=== PATIENT | female | born 1970 | race Caucasian/White ===

== ENCOUNTER 2016-10-10 07:48 | Day surgery (SDC) | payer OTHER ==
[~2016-10-10] VITALS: Ht 167.6 cm; Wt 56.3 kg
[2016-10-10] VITALS (11 sets, daily range): BP systolic 107–156; BP diastolic 60–94; PULSE 52–81; RESP 10–16; O2SAT 94–100
[~2016-10-10 07:48] MED LIST: AMLO5TAB2 PO; BENA20TA PO; GABA-502 PO; IBUP-1827 PO; OMEP40CA36 PO; OXYC1TAB24 PO; ZOLP10TA5 PO
[2016-10-10] MEDS ORDERED: Ondansetron 2 mg/mL 2 mL Inj ONE (07:49)
[2016-10-10] MEDS ORDERED: fentaNYL-PF 50 mCg/mL 2 mL Inj ONE (07:49)
[2016-10-10] MEDS ORDERED: Propofol 10,000 mCg/mL 20 mL Inj ONE (07:49)
[2016-10-10] MEDS ORDERED: Dexamethasone 4 mg/mL Inj ONE (07:49)
--- NOTE | 2016-10-10 07:55 | PCM.HPANE ---
Patient Data Date of Service: Oct 10, 2016 Surgeon Admitting Provider: Attending Provider:Luis Alberto De La Fuente DO Primary Care Physician:Keara Davis Other Provider: Reason for Visit Left Cubital Tunnel Syndrome Ht/WT & BMI Height (Feet): 5 Height (Inches): 6 Weight (Kilograms): 55.70 Body Mass Index 19.00 Allergies Coded Allergies: metronidazole (Verified Allergy, Unknown, 10/09/16) Past Anesthesia History Anesthesia History: Denies:: Anesthesia Reactions, Fam Anesthesia Reaction, Fam Malignant Hypertherm, Malignant Hyperthermia Diabetes History Hx Diabetes?: No MRSA MRSA: No Medications Hypertension Medication: Yes Home Meds Incl Beta Patricia: No Reported Medications Zolpidem 10 Mg [id number] Mg PO HS PRN For Insomnia Ref 0 10/09/16 oxyCODONE-Acetaminophen 5-325 mg 1 Each Tablet1 Tab PO Q12H PRN For Pain Ref 0 10/09/16 Omeprazole 40 Mg Capsule.dr40 Mg PO DAILY Ref 0 10/09/16 Ibuprofen 600 Mg [id number] Mg PO QID PRN For Pain Ref 0 10/09/16 Gabapentin 300 Mg [id number] Mg PO HS Ref 0 10/09/16 Benazepril 20 Mg [id number] Mg PO DAILY 10/09/16 Amlodipine 5 Mg Tablet5 Mg PO DAILY Ref 0 10/09/16 Discontinued Reported Medications Hydrochlorothiazide-Expunged, Do Not Renew! 12.5 Mg Tablet 01/21/08 Amlodipine/Benazepril-Expunged, Do Not Renew! (Lotrel 01/04-Expunged Drug, Do Not Renew!)1 Cap Capsule 01/21/08 History HEENT History: Positive for:: Sinus Problem (hx of nasal fx surgery) Denies:: Cataracts Glaucoma Hearing Problem Cardiovascular History: Positive for:: Hypertension Irregular Heartbeat (occ palpitations ) Valvular Heart Disease (mild aortic regurg- recent ZIO patch done) Denies:: Abdominal Aortic Aneurism Atrial Fibrillation Cardiac Surgery Chest Pain Congestive Heart Failure Coronary Artery Disease Edema Hx of Respiratory Problem?: No Respiratory History: Denies:: Asthma COPD Emphysema Oxygen Administration Pneumonia Tuberculosis Use of C-PAP Machine (sleep study 10 years ago- negative ) Use of Inhalers / NEBS Hx Neurologic Problems?: No Neurological History: Denies:: CVA Headaches Multiple Sclerosis Parkinson's Disease Seizures Hx of GI Problems?: Yes Gastrointestinal History: Positive for:: Gastroesphageal Reflux Heartburn Denies:: Cirrhosis Gall Bladder Disease Gastrointestinal Bleeding Hepatitis Hiatal Hernia Liver Disease Rectal Bleeding Hx of Problems?: No Genitourinary History: Denies:: Kidney Stones Urinary Tract Infection Female Hx: Denies:: Currently (tubal ligation) Problems with Breasts? Skin History: Denies:: History Skin Disorders? Pressure Ulcers Hx Musculoskeletal Problems?: Yes Musculoskeletal History: Positive for:: Musculoskeletal Trauma (left elbow current admission problem) Osteoarthritis (questionable) Denies:: Back Injury Fibromyalgia Joint Replacement Hx of Psycho/Social Problems?: No Psycho Social History: Denies:: Anxiety (questions whether palpitation are anxiety related) Hx Depression Hx Surgeries?: Yes (c sections x2, tubal ligation, closed redux nasal fx) Hx Any Other Health Problems?: Yes Other History: Denies:: Cancer Thyroid Disease History Blood Transfusions: Positive for:: Accept Blood Products? Denies:: Blood Transfusions Hx Diabetes: No Hx Alcohol Use: YesAlcoholic Drinks Per Day: every other weekend or soHx Substance Use: No Smoking Status: Current Every Day Smoker Have You Smoked inLast 12 mo: Yes Stop/Bang Treated for Sleep Apnea?: No Do You Have a CPAP Machine?: No S-Snoring: Do You Snore Loudly: No T-Tired: feel tired, fatigued: Yes O-Obsered: Observed not breath: No P-Blood Pressure: treated: Yes B- Body Mass Index > 35 kg/m2: No A- Age over 50: No N- Neck Large Circumference: No G- Gender Male: No SRINI Total Score: 2 SRINI Risk Assessment: Low Risk, <3 Yes Risk Assessment Category Category 1A: Patient has history of documented sleep apnea, and HAS NOT received any narcotic, sedative or anesthesia administration during this stay. Category 1B: Patient has history of documented sleep apnea, and HAS received any narcotic , sedative or anesthesia administration during this stay Category 2: Patient has SUSPECTED Obstructive Sleep Apnea, and HAS received any narcotic , sedative or anesthesia administration during this stay. Category 3: Patient has SUSPECTED Obstructive Sleep Apnea and HAS NOT received narcotic, sedative or anesthesia administration during this stay. Category 4: Outpatient in Procedural Areas with known sleep apnea or who screen positive for High Risk via the STOP/BANG questionnaire. Exam Exam General Appearance: Alert, Oriented X3, Cooperative HEENT/AIRWAY: MP 2 Lungs: Clear to Auscultation, Normal Air Movement Heart: Normal S1, Normal S2, Murmur (II/ LISHA RUSB without radiation) Plan Impression Patient chart reviewed, patient interviewed and anesthestic plan with risks, benefits, and alternatives discussed, and informed consent obtained. ASA Physical Status: ASA2 Mod Systemic Disease Anesthetic Plan: GA Bene/Risks/Altern/Consents: Yes HP Complete Prior to Induction: Yes Merrill De Anda DO Oct 10, 2016 07:55
[2016-10-10] MEDS ORDERED: Lactated Ringer's 500 ML IV PRN (08:39)
[2016-10-10] MEDS ORDERED: Lactated Ringer's 1,000 ML IV SCH (08:39)
[2016-10-10] MEDS ORDERED: Dexamethasone 4 mg/mL Inj IVPUSH PRN (08:40)
[2016-10-10] MEDS ORDERED: EPHEDrine Sulfate 50 mg/mL Inj IVPUSH PRN (08:40)
[2016-10-10] MEDS ORDERED: Labetalol 5 mg/mL 4 mL Inj IV PRN (08:40)
[2016-10-10] MEDS ORDERED: MetoCLOpramide 5 mg/mL 2 mL Inj IVPUSH PRN (08:40)
[2016-10-10] MEDS ORDERED: Atropine 0.4 mg/mL Inj IVPUSH PRN (08:40)
[2016-10-10] MEDS ORDERED: Phenylephrine 10,000 mCg/mL Inj IVPUSH PRN (08:40)
[2016-10-10] MEDS ORDERED: Ondansetron 2 mg/mL 2 mL Inj IVPUSH PRN (08:40)
[2016-10-10] MEDS ORDERED: Lidocaine 1%-Epi 1:100,000 20 mL Inj INFILTRATE ONE (08:46)
[2016-10-10] MEDS: Lactated Ringer's 1,000 ML IV SCH ×2 (08:55→08:59)
[2016-10-10] MEDS ORDERED: oxyCODONE-Acetamin 5-325 mg Tablet PO PRN (09:05)
[2016-10-10] MEDS: HYDROmorphone 1 mg/mL Inj IVPUSH PRN ×3 (11:14→11:20)
[2016-10-10] MEDS: fentaNYL-PF 50 mCg/mL 2 mL Inj IVPUSH PRN ×2 (11:25→11:45)
--- NOTE | 2016-10-10 11:58 | PCM.ANEP1 ---
Post Anesthesia Phase 1 PACU Phase 1 Assessment Date of Service: Oct 10, 2016 Vital Signs Vital Signs Date Time Temp Pulse Resp B/P Pulse Ox O2 Delivery O2 Flow Rate FiO2 10/10/16 11:00 63 16 141/88 100 Room Air 10/10/16 10:50 36.5 61 14 123/90 100 Room Air 10/10/16 10:45 63 10 140/89 100 Room Air 10/10/16 10:40 36.7 65 10 126/80 100 Room Air 10/10/16 10:35 81 14 136/88 99 Room Air 10/10/16 10:30 55 11 126/72 99 Room Air 10/10/16 10:25 53 13 117/64 100 Simple Mask 8 10/10/16 10:23 36.5 52 13 107/60 100 Simple Mask 8 10/10/16 08:50 36.1 68 16 124/83 94 Room Air Anesthetic Administered: GA Level of Alertness: Drowsy, not talking GALLEGO's with Equal Strength: Yes Pain: No Nausea or Vomiting: No Airway Device: LMA Oxygen Delivery: Room Air, Simple Mask (6l) Lungs: Clear to Auscultation, Normal Air Movement Dermatome Level: Full Sensation Merrill De Anda DO Oct 10, 2016 11:57
--- NOTE | 2016-10-10 14:10 | PCM.ANEP2 ---
Post Anesthesia Evaluation ASA/CMS Post Anesthesia Date of Service: Oct 10, 2016 VS in Patient's Normal Range?: Yes Resp Stable; Airway Patent?: Yes CV Function & Hydration Stable: Yes Mental Status Recovered?: Yes Pain control Satisfactory?: Yes N/V Control Satisfactory?: Yes Merrill De Anda DO Oct 10, 2016 14:10
--- NOTE | 2016-10-11 00:37 | OP ---
[address] [address] OPERATIVE REPORT PATIENT: GLORIA SAUCEDA : 1970 MR#: [id number] ADMIT: 10/10/2016 JOB ID: [id number] DATE OF SURGERY: 10/10/2016 PREOPERATIVE DIAGNOSIS(ES): Left cubital tunnel syndrome with subluxating ulnar nerve. POSTOPERATIVE DIAGNOSIS(ES): Left cubital tunnel syndrome with subluxating ulnar nerve. PROCEDURE: Left elbow submuscular ulnar nerve transposition. SURGEON: Luis Alberto De La Fuente D.O. ANESTHESIA: General. BRIEF HISTORY: The patient is a 45-year-old female with longstanding history of left elbow pain, as well as paresthesias to her left ring and small finger. The patient demonstrated with subluxating ulnar nerve most prominent to the left elbow. The patient had failed conservative treatment and demonstrated these findings for quite some time. Discussed with the patient the risks, benefits, alternatives and indications to proceed with a submuscular ulnar nerve transposition. She understood the risks include, but are not limited to, neurovascular injury, tendon injury, infection, failure to resolve the patient's preoperative symptoms, stiffness, persistent pain; all of which may require further intervention. The patient had all questions answered. Consent signed and placed in chart. PROCEDURE IN DETAIL: The patient was brought to the operative suite and placed supine on the operating room table. Surgical time-out was performed. Everyone in the room was in agreement. After appropriate anesthesia was obtained, a left upper arm tourniquet was applied, and the left upper extremity was prepped and draped in a sterile fashion. Left upper extremity was then exsanguinated and the tourniquet inflated to 250 mmHg. A curvilinear incision was made overlying the course of the ulnar nerve within the cubital tunnel. Dissection was carried down to the cubital tunnel at the elbow, taking care to protect any branches of the medial antebrachial cutaneous nerve. The ulnar nerve was identified within the cubital tunnel and decompressed as far proximal to level of medial intermuscular septum. The medial intermuscular septum was also excised allowing for transposition of the ulnar nerve. The dissection was carried out distally to include the deep fascia of the flexor carpi ulnaris. After full mobilization of the ulnar nerve and decompression the ulnar nerve was found to easily be transposed anteriorly. Next, the transposition flaps were created. A step-cut lengthening was made within the proximal forearm musculature, taking care to remove any deep fascia that could cause later impingement of the nerve. The ulnar nerve was then transposed anteriorly. The overlying fascial flaps that were lengthened were then repaired with 0-Vicryl in a [id number] fashion. There was significant room within the prepared lateral flaps and the elbow was brought through full functional range of motion and no further sites of compression were identified. Copious irrigation was then performed. The subcutaneous tissues were closed with 4-0 Vicryl, followed by 3-0 Monocryl for the skin. Patient then had Steri-Strips applied and was placed into a well-padded, well-molded, long-arm posterior splint. ESTIMATED BLOOD LOSS: Less than 5 cc. COMPLICATIONS: None. DISPOSITION: The patient tolerated the procedure well. Anesthesia was reversed. The patient was transferred to PACU for recovery. POSTOPERATIVE PLAN: The patient will follow up in the office in two weeks. I will remove the patient's splint at that time and transition her to a removable wrist brace. She will then work with physical therapy for range of motion of the elbow. BARON
== END 2016-10-10 23:59 | disposition home or self-care (01) ==
LOC: SAS 07:48
PROVIDERS: ATTEND Orthopaedic Surgery
DX: G56.22 Lesion of ulnar nerve, left upper limb (principal); I10 Essential (primary) hypertension; I35.1 Nonrheumatic aortic (valve) insufficiency; M54.12 Radiculopathy, cervical region; K21.9 Gastro-esophageal reflux disease without esophagitis; F17.210 Nicotine dependence, cigarettes, uncomplicated
CPT/HCPCS: 64718; J1100; J1170; J2250; J2405; J3010; J7120